=== PATIENT | male | born 1990 | race Caucasian/White ===

== ENCOUNTER 2022-06-08 05:36 | Emergency (ER) | payer SELFPAY ==
[~2022-06-08] VITALS: Ht 182.9 cm; Wt 68.0 kg
--- NOTE | 2022-06-08 06:12 | NUR ---
Patient ambulated to room #2-b, informed of plan of care, awaiting MD exam. No s/s of any distress noted at this time.
--- NOTE | 2022-06-08 06:45 | NUR ---
talking with patient re: treatment plan.
[2022-06-08] MEDS ORDERED: IV NORMAL SALINE 0 ML IV ONE (08:09)
[2022-06-08] MEDS ORDERED: IOHEXOL 300MG/ML 100 ML INFUS..BTL ONE (08:09)
[2022-06-08] MEDS ORDERED: SWABABLE VALVE TRANSFER SET EA MC ONE (08:09)
[2022-06-08] MEDS ORDERED: IBUPROFEN 600 MG TABLET ONE (08:37)
[2022-06-08] MEDS ORDERED: IBUPROFEN 600 MG TABLET PO ONE (08:45)
--- NOTE | 2022-06-08 08:48 | NUR ---
Pt signed out AMA.
== END 2022-06-08 08:45 | disposition left against medical advice (07) ==
LOC: ER 05:42
DX: L02.511 Cutaneous abscess of right hand (principal); M79.89 Other specified soft tissue disorders; Z59.00 Homelessness unspecified; F17.210 Nicotine dependence, cigarettes, uncomplicated; Z53.29 Procedure and treatment not carried out because of patient's decision for other reasons
CPT/HCPCS: A4663; Q9967